=== PATIENT | female | born 1980 | race Hispanic/Latino ===

== ENCOUNTER 2018-03-12 03:43 | Emergency (ER) | payer OTHER, SELFPAY ==
[2018-03-12 03:44] VITALS: BP 115/77; PULSE 73; TEMP 36.3; O2SAT 100
--- NOTE | 2018-03-12 03:51 | ED.SKABFB ---
HPI - Skin/Abscess/Foreign Bdy General Chief complaint: Skin/Abscess/Foreign Body Stated complaint: Rash Time Seen by Provider: 03/12/18 03:51 Source: patient Mode of arrival: ambulatory Limitations: no limitations History of Present Illness HPI narrative: The patient developed rash starting about 3 days ago. She has brightly erythematous rash over much of her body. She is itchy. She has no runny nose, cough or congestion. She has no nausea or vomiting. She denies fever or chills. She has no chronic skin disease. She thinks she has had an allergic reaction. The rash has continued to spread over the last couple days. The rash is from her neck, across her torso and on to her extremities. There is no drainage from the rash. She took Benadryl yesterday, she has not taken Benadryl on a regular basis. Related Data Home Medications Medication Instructions Recorded Confirmed fluoxetine [Prozac] 40 mg PO QDAY #0 06/12/16 Previous Rx's Medication Instructions Recorded ibuprofen 600 mg PO Q8HP PRN #20 tab 06/12/16 tramadol 50 mg PO Q6HP PRN #20 tab 06/12/16 prednisone 60 mg PO DAILY 4 Days #12 tab 03/12/18 Review of Systems Review of Systems All systems reviewed & are unremarkable except as noted in HPI and below Constitutional Reports as per HPI, Denies chills, Denies fever(s), Denies lethargy and Denies weakness Eyes Denies eye discharge ENT Ears, Nose, Mouth, and Throat: Denies post nasal drip, Denies sinus pain and Denies sore throat Cardiovascular Denies chest pain, Denies irregular heart rhythm, Denies lightheadedness, Denies palpitations, Denies dyspnea and Denies dyspnea on exertion Respiratory Denies cough, Denies dyspnea, Denies dyspnea on exertion and Denies wheezing Gastrointestinal Gastrointestinal: Denies abdominal pain, Denies change in bowel habits, Denies diarrhea, Denies nausea and Denies vomiting Musculoskeletal Denies back pain, Denies muscle weakness, Denies numbness and Denies tingling Integumentary/Breasts Reports as per HPI Neurologic Denies numbness, Denies tingling and Denies weakness Endocrine Denies palpitations Allergic/Immunologic Denies wheezing Exam Initial Vital Signs Initial Vital Signs: Vital Signs Temperature 97.4 F L 03/12/18 03:44 Pulse Rate 73 03/12/18 03:44 Blood Pressure 115/77 03/12/18 03:44 Pulse Oximetry 100 03/12/18 03:44 Const General: cooperative, healthy appearing and well developed Nutritional Appearance: well nourished Orientation: alert, awake, oriented x3 and not confused [facility] Head: normal to inspection, normocephalic and atraumatic Ears: external ears normal and TM's normal bilaterally Face and sinus: normal facial exam and sinuses nontender Mouth: oral mucosae normal, lip normal, tongue normal and oropharynx normal Eyes Conjunctivae: conjunctivae normal Resp Effort & Inspection: normal respiratory effort, able to speak in complete sentences, no respiratory distress and no use of accessory muscles Auscultation: clear to auscultation bilaterally, no rales, no rhonchi and no wheezes Cardio Rate: regular rate Rhythm: regular rhythm Heart Sounds: S1 normal, no click, no gallops, no murmurs and no rubs Pulses: normal peripheral pulses GI Inspection: non-distended Palpation: soft, no hepatosplenomegaly, No guarding and No tender Auscultation: normal bowel sounds Skin General: other (The patient has maculopapular erythematous rash over much of her body as described in HPI. The rash minimally blanches. There is no associated purulence. The rash is consistent with atopic dermatitis.) Course Orders Ordered: Discontinued Medications Ketorolac Tromethamine (Toradol) 30 mg IV NOW ONE Stop: 03/12/18 04:10 Prednisone (Deltasone) 60 mg PO NOW ONE Stop: 03/12/18 04:15 Vital Signs - 8 hr 03/12/18 03:44 Temperature 97.4 F L Pulse Rate 73 Blood Pressure 115/77 Pulse Oximetry 100 Discharge Plan Departure Patient Disposition: Home, Self-Care Clinical Impression: Atopic dermatitis Instructions: DI for Atopic Dermatitis - Adult Activity Restrictions/Additional Instructions: Prednisone 60 mg daily. Benadryl 1 tab every 6 hr as needed for itching. Recheck with your doctor in 3-4 days if no better. Prescriptions: New prednisone 20 mg tablet 60 mg PO DAILY 4 Days Qty: 12 RF: 0 No Action fluoxetine [Prozac] 40 MG capsule 40 mg PO QDAY Qty: 0 RF: 0 tramadol 50 MG tablet 50 mg PO Q6HP PRNQty: 20 RF: 0 ibuprofen 600 MG tablet 600 mg PO Q8HP PRNQty: 20 RF: 0
[2018-03-12] MEDS: predniSONE 20 MG TABLET 60 MG PO (04:44)
[2018-03-12 05:07] VITALS: BP 128/60; PULSE 67; RESP 17; O2SAT 100
== END 2018-03-12 04:45 | disposition home or self-care (01) ==
LOC: ED 04:50
PROVIDERS: Emergency Provider Emergency Medicine
DX: L20.9 Atopic dermatitis, unspecified (principal)
CPT/HCPCS: 99282; 99283

== ENCOUNTER 2018-12-31 22:40 | Emergency (ER) | payer OTHER, SELFPAY ==
[2018-12-31 23:00] VITALS: BP 110/58; PULSE 50; RESP 18; TEMP 36.6; O2SAT 100
--- NOTE | 2018-12-31 23:38 | ED_ITS ---
HPI - Back Pain/Injury General Chief Complaint: Back Pain/Injury Stated Complaint: HURT BACK Time Seen by Provider: 12/31/18 23:21 Source: patient Mode of arrival: ambulatory Limitations: no limitations History of Present Illness HPI Narrative: Otherwise healthy 38-year-old female here for evaluation of lower back pain. 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 She did not fall. Does not radiating down to her legs over she states that her hips are hurting. Has no urinary symptoms. No change in bowel. No fevers. Related Data Home Medications Medication Instructions Recorded Confirmed fluoxetine [Prozac] 40 mg PO QDAY #0 06/12/16 Previous Rx's Medication Instructions Recorded ibuprofen 600 mg PO Q8HP PRN #20 tab 06/12/16 tramadol 50 mg PO Q6HP PRN #20 tab 06/12/16 acetaminophen-codeine 1 tab PO Q4-6H PRN #14 tab 12/31/18 [Tylenol-Codeine #3] cyclobenzaprine 10 mg PO TID PRN #10 tab 12/31/18 Review of Systems Constitutional Denies fever(s), Denies headache(s) and Denies weakness ENT Ears, Nose, Mouth, and Throat: Denies vertigo, Denies headache(s) and Denies disequilibrium Cardiovascular Denies chest pain and Denies dyspnea Respiratory Denies dyspnea Gastrointestinal Gastrointestinal: Denies abdominal pain Genitourinary Denies dysuria, Denies urinary incontinence, Denies urinary hesitancy and Denies urinary urgency Musculoskeletal Reports back pain Integumentary/Breasts Denies rash Neurologic Denies confusion, Denies vertigo, Denies headache(s), Denies radicular pain, Denies paresthesias, Denies disequilibrium and Denies weakness Psychiatric Denies confusion Hematologic/Lymphatic Denies easy bleeding and Denies easy bruising [facility] Medical History Healthy adult (Acute) Social History Smoking Status: Former smoker Social History Smoking Status: Former smoker Exam Initial Vital Signs Initial Vital Signs: Vital Signs Temperature 98 F 12/31/18 23:00 Pulse Rate 50 L 12/31/18 23:00 Respiratory Rate 18 12/31/18 23:00 Blood Pressure 110/58 L 12/31/18 23:00 Pulse Oximetry 100 12/31/18 23:00 Const General: cooperative, well developed, well groomed and No acute distress Orientation: alert and oriented x3 Resp Effort & Inspection: normal respiratory effort Auscultation: clear to auscultation bilaterally Cardio Rate: regular rate GI Inspection: non-distended Palpation: soft, No firm and No tender Back/Spine/Pelvis Cervical Spine: No cervical spasm Thoracic/Lumbar Spine: No paraspinal tenderness, No thoraco-lumbar spasm, No thoracic spinal tenderness and lumbar spinal tenderness Sacroiliac Joints: nontender Skin Lesions: no lesions Rashes: no rashes Neuro General: alert, awake and oriented x3 Cognition: normal cognition Speech: speech normal Gait: normal gait Motor: muscle tone normal throughout Sensory Exam: no sensory deficits noted Extrem General: normal to inspection and capillary refill normal Psych Appearance: grossly normal and well kempt Course Orders Ordered: Discontinued Medications Acetaminophen/Codeine Phosphate (Tylenol #3 Prepack) 1 bottle MISC SEEINSTR ONE Stop: 12/31/18 23:39 Last Admin: 12/31/18 23:46 Dose: 1 bottle Acetaminophen/Codeine Phosphate (Tylenol #3) 1 tab PO NOW ONE Stop: 12/31/18 23:39 Last Admin: 12/31/18 23:46 Dose: 1 tab Ketorolac Tromethamine (Toradol) 30 mg IM NOW ONE Stop: 12/31/18 23:39 Last Admin: 12/31/18 23:46 Dose: 30 mg Vital Signs - 8 hr 12/31/18 23:00 01/01/19 00:21 Temperature 98 F Pulse Rate 50 L 49 L Respiratory Rate 18 16 Blood Pressure 110/58 L 116/68 Pulse Oximetry 100 99 MDM - Back Pain/Injury MDM Narrative Medical decision making narrative: Suspect musculoskeletal injury. She did not fall. No indication for radiologic studies. She has no red flag symptoms concerning for fracture, cauda equina, metastasis, epidural hematoma/abscess. She was given Toradol here in the emergency department. Will send home with medication. She was given instructions on the expected course of treatment with regard to the back pain. The L and I paperwork was completed. She was given return precautions and follow-up instructions. She expressed understanding and agreement with plan. Discharge Plan Departure Patient Disposition: Home Clinical Impression: Lower back pain Qualifiers: Chronicity: acute Back pain laterality: midline Sciatica presence: without sciatica Qualified Code(s): M54.5 - Low back pain Discharge Date/Time: 01/01/19 00:21 Interventions: ED Discharge Assessment Last Done: 01/01/19 00:21 Instructions: DI for Low Back Pain, Activity May Be Better then Rest for Low Back Pain Recovery, Exercise May Reduce Risk of Low Back Pain Activity Restrictions/Additional Instructions: I recommend you start taking any anti-inflammatories such as Motrin or Naprosyn. Take this with food. Take this on a daily basis as directed on the bottle. Take the pain medication as needed. Contact your primary care doctor to discuss the indications for an MRI. Return to the emergency department for any new or worsening symptoms Prescriptions: New cyclobenzaprine 10 mg tablet 10 mg PO TID PRN (Reason: muscle spasm) Qty: 10 RF: 0 acetaminophen-codeine [Tylenol-Codeine #3] 300-30 mg tablet 1 tab PO Q4-6H PRN (Reason: pain) Qty: 14 RF: 0 No Action fluoxetine [Prozac] 40 MG capsule 40 mg PO QDAY Qty: 0 RF: 0 tramadol 50 MG tablet 50 mg PO Q6HP PRNQty: 20 RF: 0 ibuprofen 600 MG tablet 600 mg PO Q8HP PRNQty: 20 RF: 0 Referrals: Juan Pablo Adams MD [Primary Care Provider] -
[2018-12-31] MEDS: CODEINE/ACETAMINOPHEN 30/300 TABLET 1 TAB PO (23:46)
[2018-12-31] MEDS: KETOROLAC 60 MG/2 ML VIAL 30 MG IM (23:46)
[2018-12-31] MEDS: CODEINE/APAP 30/300 PREPACK 1 BOTTLE MISC (23:46)
[2019-01-01 00:21] VITALS: BP 116/68; PULSE 49; RESP 16; O2SAT 99
== END 2019-01-01 00:21 | disposition home or self-care (01) ==
PROVIDERS: Emergency Provider Emergency Medicine
DX: M54.5 Low back pain (principal); M25.552 Pain in left hip; M25.551 Pain in right hip; Y99.0 Civilian activity done for income or pay
CPT/HCPCS: 96372; 99282; 99283; J1885